=== PATIENT | female | born 1950 | race African-American/Black ===

== ENCOUNTER 2017-03-16 10:49 | Emergency (ER) | payer OTHER ==
[~2017-03-16] VITALS: Ht 162.6 cm; Wt 112.5 kg
[2017-03-16 10:57] VITALS: Ht 162.6 cm; Wt 112.5 kg
[2017-03-16 13:22] VITALS: BP 137/89
== END 2017-03-16 13:22 | disposition home or self-care (01) ==
LOC: ED 10:49
DX: S29.011A Strain of muscle and tendon of front wall of thorax, initial encounter (principal); M54.30 Sciatica, unspecified side; I10 Essential (primary) hypertension; Z88.0 Allergy status to penicillin; Z88.8 Allergy status to other drugs, medicaments and biological substances; X58.XXXA Exposure to other specified factors, initial encounter; Y93.89 Activity, other specified; Y92.89 Other specified places as the place of occurrence of the external cause; Y99.8 Other external cause status

== ENCOUNTER 2018-12-14 09:38 | Emergency (ER) | payer OTHER ==
[~2018-12-14] VITALS: Ht 162.6 cm; Wt 117.0 kg
[2018-12-14 09:49] VITALS: BP 149/78; Ht 162.6 cm; Wt 117.0 kg
== END 2018-12-14 12:05 | disposition home or self-care (01) ==
LOC: ED 09:38
DX: M54.16 Radiculopathy, lumbar region (principal); M51.36 Other intervertebral disc degeneration, lumbar region; I10 Essential (primary) hypertension; E11.9 Type 2 diabetes mellitus without complications; E03.9 Hypothyroidism, unspecified; E66.9 Obesity, unspecified; M19.90 Unspecified osteoarthritis, unspecified site; F32.9 Major depressive disorder, single episode, unspecified; G89.29 Other chronic pain; Z68.41 Body mass index [BMI] 40.0-44.9, adult; Z98.84 Bariatric surgery status; Z98.890 Other specified postprocedural states; Z88.0 Allergy status to penicillin; Z88.8 Allergy status to other drugs, medicaments and biological substances
CPT/HCPCS: 82962; J1100; J1885